=== PATIENT | male | born 1960 | race Caucasian/White ===

== ENCOUNTER 2022-05-31 08:15 | Outpatient (RCR) | payer BC, SELFPAY | END 2022-05-31 08:50 | disposition home or self-care (01) | PROVIDERS: PCP Student in an Organized Health Care Education/Training Program; Visit Provider Student in an Organized Health Care Education/Training Program | DX: S76.011A Strain of muscle, fascia and tendon of right hip, initial encounter (principal); Z51.89 Encounter for other specified aftercare | CPT/HCPCS: 97012; 97110; 97112; 97140; 97162 ==